=== PATIENT | female | born 1965 | race Caucasian/White ===

== ENCOUNTER 2017-09-26 07:56 | Emergency (ER) | payer OTHER ==
[~2017-09-26] VITALS: Ht 154.9 cm; Wt 105.2 kg
[~2017-09-26 07:56] MED LIST: CYCLOBENZAPRINE10 MG PO; MELOXICAM15 MG PO; SERTRALINE HCL50 MG PO; TRAMADOL HCL50 MG PO
[2017-09-26] MEDS ORDERED: ACETAMINOPHEN325 M1 PO (08:15)
[2017-09-26] MEDS ORDERED: IBUPROFEN400 MG PO (08:16)
[2017-09-26] MEDS ORDERED: ONDANSETRON ODT8 MG PO (08:20)
[2017-09-26] MEDS ORDERED: PROMETHAZINE HC25 M1 PO (11:25)
== END 2017-09-26 12:28 | disposition home or self-care (01) ==
LOC: ED 07:56
DX: K52.9 Noninfective gastroenteritis and colitis, unspecified (principal); F17.200 Nicotine dependence, unspecified, uncomplicated; Z90.49 Acquired absence of other specified parts of digestive tract; Z98.51 Tubal ligation status; Z98.890 Other specified postprocedural states
CPT/HCPCS: 80053; 85025; 96361; 96374; 96375; 96376; 99283; J1200; J2405; J2550; J7030

== ENCOUNTER 2017-11-05 09:13 | Emergency (ER) | payer OTHER ==
[~2017-11-05] VITALS: Ht 154.9 cm; Wt 97.1 kg
[~2017-11-05 09:13] MED LIST changes: +ACETAMINOPHEN325 M1 PO; +IBUPROFEN400 MG PO; +ONDANSETRON ODT8 MG PO; +PROMETHAZINE HC25 M1 PO
[2017-11-05] MEDS ORDERED: NAPROXEN375 MG PO (13:33)
== END 2017-11-05 13:52 | disposition home or self-care (01) ==
LOC: ED 09:13
DX: S86.911A Strain of unspecified muscle(s) and tendon(s) at lower leg level, right leg, initial encounter (principal); F17.200 Nicotine dependence, unspecified, uncomplicated; Z98.51 Tubal ligation status; Z90.49 Acquired absence of other specified parts of digestive tract; W19.XXXA Unspecified fall, initial encounter; Y99.0 Civilian activity done for income or pay
CPT/HCPCS: 73560; 73700; 99283

== ENCOUNTER 2019-07-21 17:30 | Emergency (ER) | payer OTHER ==
[~2019-07-21] VITALS: Ht 154.9 cm; Wt 111.1 kg
[~2019-07-21 17:30] MED LIST changes: +NAPROXEN375 MG PO
[2019-07-22] MEDS ORDERED: CYCLOBENZAPRINE10 MG PO (19:19)
[2019-07-22] MEDS ORDERED: NORCO 5-325 TA1 EACH PO (19:19)
[2019-07-22] MEDS ORDERED: DICLOFENAC SODI75 MG PO (19:19)
== END 2019-07-21 18:42 | disposition home or self-care (01) ==
LOC: ED 17:30
DX: M25.551 Pain in right hip (principal)

== ENCOUNTER 2019-07-22 16:22 | Emergency (ER) | payer OTHER ==
[~2019-07-22] VITALS: Ht 154.9 cm; Wt 111.1 kg
--- OUTSIDE RECORDS SUMMARY | 2019-07-22 16:26 | XMS ---
PreManage Notification: DANNA OLEA Security Epoxy Specialist Events No recent Security Events currently on file CRITERIA MET - [facility] - 2 Visits in 30 Days CARE PROVIDERS Ermias Recio MD Primary Care Current PHONE: Unknown ormiley Case or Net Fisher Current PHONE: Unknown Kurt has no Care Guidelines for this patient. Julissa VISIT COUNT (12 MO.) 2 [facility] TOTAL 2 NOTE: Visits indicate total known visits. ED/UCC VISIT TRACKING (12 MO.) 07/22/2019 16:23 [facility] [place] TYPE: Emergency COMPLAINT: - HIP PAIN 07/21/2019 17:31 [facility] [place] TYPE: Emergency COMPLAINT: - RIGHT HIP PAIN, INJ- MSE TO HOME INPATIENT VISIT TRACKING (12 MO.) No inpatient visits to display in this time frame [email or web address]
[2019-07-22] MEDS ORDERED: NORCO 5-325 TA1 EACH PO (19:19)
[2019-07-22] MEDS ORDERED: CYCLOBENZAPRINE10 MG PO (19:19)
[2019-07-22] MEDS ORDERED: DICLOFENAC SODI75 MG PO (19:19)
== END 2019-07-22 19:32 | disposition home or self-care (01) ==
LOC: ED 16:22
DX: M54.31 Sciatica, right side (principal); F17.200 Nicotine dependence, unspecified, uncomplicated
CPT/HCPCS: 99283; 99406

== ENCOUNTER 2019-09-02 13:22 | Emergency (ER) | payer OTHER ==
[~2019-09-02] VITALS: Ht 154.9 cm; Wt 111.1 kg
--- OUTSIDE RECORDS SUMMARY | ~2019-09-02 | XMS | Clinical Summary ---
Demographics + + + | Address | [address] | | | [place] [address] | + + + | Home Phone | | + + + | Preferred Language | Unknown | + + + | Marital Status | Single | + + + | Congregational Affiliation | Unknown | + + + | Race | Unknown | + + + | Ethnic Group | Unknown | + + + Author + + + | Author | [facility] | | | and [place] | + + + | Organization | [facility] | | | and [place] | + + + | Address | Unknown | + + + | Phone | Unavailable | + + + Support + + +---------+ + | Name | Relationship | Address | Phone | + + +---------+ + | None,None | ECON | Unknown | | + + +---------+ + Care Team Providers + +------+ + | Care Stem Sizer Name | Role | Phone | + +------+ + | No, Physician | PCP | Unavailable | + +------+ + Allergies No Known Allergies Medications + + + +---------+------+------+-------+ | Medication | Sig | Dispensed | Refills | Star | End | Statu | | | | | | t | Date | s | | | | | | Date | | | + + + +---------+------+------+-------+ | naproxen | Take 500 mg by mouth | | 0 | | | Activ | | (NAPROSYN) 500 mg | 2 times daily (with | | | | | e | | tablet | breakfast & | | | | | | | | dinner). | | | | | | + + + +---------+------+------+-------+ | Acetaminophen | Take by mouth as | | 0 | | | Activ | | (TYLENOL PO) | needed. | | | | | e | + + + +---------+------+------+-------+ Active Problems No known active problems Social History + +-------+ +--------+------+ | Tobacco [...] recent travel history available. | + + Last Filed Vital Signs + + + + | Vital Sign | Reading | Time Taken | + + + + | Blood Pressure | 176/88 | 01/29/20181240 PDT | + + + + | Pulse | 84 | 01/29/20181240 PDT | + + + + | Temperature | 37.1 C (98.7 F) | 01/29/20181240 PDT | + + + + | Respiratory Rate | 16 | 01/29/20181240 PDT | + + + + | Oxygen Saturation | 96% | 01/29/20181240 PDT | + + + + | Inhaled Oxygen | - | - | | Concentration | | | + + + + | Weight | 85.1 kg (187 lb 9.8 | 01/29/20181240 PDT | | | oz) | | + + + + | Height | 152.4 cm (5') | 01/29/20181240 PDT | + + + + | Body Mass Index | 36.64 | 01/29/20181240 PDT | + + + + Plan of Treatment + + + + + | Health Maintenance | Due Date | Last Done | Comments | + + + + + | Hepatitis C | 10/02/196 | | | | Screening | 5 | | | + + + + + | Vaccine: | | | | | Dtap/Tdap/Td (1 - | 4 | | | | Tdap) | | | | + + + + + | Vaccine: | | | | | Pneumococcal 19-64 | 4 | | | | (PPSV23 only) Medium | | | | | Risk (1 of 1 - | | | | | PPSV23) | | | | + + + + + | Cervical Cancer | | | | | Screening (Pap) | 5 | | | + + + + + | Breast Cancer | | | | | Screening | 0 | | | + + + + + | Colorectal Cancer | | | | | Screening | 5 | | | | (Colonoscopy) | | | | + + + + + | Vaccine: Zoster (1 | | | | | of 2) | 5 | | | + + + + + | Vaccine: Influenza | | | | | (#1) | 9 | | | + + + + + Results Not on filefrom Last 3 Months Insurance + +--------+ +--------+ +---------+--------+ | Payer | Benefi | Subscriber | Effect | Phone | Address | Type | | | t Plan | ID | black | | | | | | / | | Dates | | | | | | Group | | | | | | + +--------+ +--------+ +---------+--------+ | [employer] | MODA | [id number] | | [phone] | | Medica | | MEDICAID HMO | HEALTH | | 017-Pr | 1 | | id | | | MDCD | | esent | | | | | | HMO [place] | | | | | | + +--------+ +--------+ +---------+--------+ + +--------+ +--------+ + + | Guarantor Name | Accoun | Relation to | Date | Phone | Billing Address | | | t Type | Patient | of | | | | | | | | | | + +--------+ +--------+ + + | Palmira Arias | Person | Self [birth year] | [address] | | | al/Fam | | 1964 | 54 | [place] [address] | | | [place] | | | 0 (Home) | | + +--------+ +--------+ + + | Palmira Arias | 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 For more information, please contact:[facility] [place] [address]"
--- OUTSIDE RECORDS SUMMARY | ~2019-09-02 | XMS | Clinical Summary ---
Demographics + + + | Address | [address] | | | [place] [address] | + + + | Home Phone | | + + + | Preferred Language | Unknown | + + + | Marital Status | Single | + + + | Advent Affiliation | Unknown | + + + | Race | Unknown | + + + | Ethnic Group | Unknown | + + + Author + + + | Author | [facility] | | | and [place] | + + + | Organization | 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 For more information, please contact:[facility] [place] [address]"
[~2019-09-02 13:22] MED LIST changes: +DICLOFENAC SODI75 MG PO; +NORCO 5-325 TA1 EACH PO
--- OUTSIDE RECORDS SUMMARY | 2019-09-02 13:26 | XMS ---
PreManage Notification: DANNA OLEA Security Skin Therapist Events No recent Security Events currently on file CRITERIA MET - [facility] - Has Care Guidelines - PDMP CARE PROVIDERS LOGAN FERGUSON Nurse Practitioner: Family 07/23/2019-Current PHONE: Unknown Ermias Recio MD Primary Care Current PHONE: Unknown casey Case or Instrumentation Designer Current PHONE: Unknown Kurt has no Care Guidelines for this patient. Care History Medical/Surgical 07/23/2019 [facility] - Patient is currently established with [facility]. If patient is seen in the ED during business hours. Please contact CHWs at [facility]. Care Recommendation: This patient has had 5 or more Emergency Department visits in the last 12 months.\T\nbsp; Patient requires education on the scope and purpose of the ED as an acute care provider not a Primary Care Provider and should not be utilized for chronic conditions.\T\nbsp; These are guidelines and the provider should exercise clinical judgment when providing care. E.D. VISIT COUNT (12 MO.) 3 [facility] Patel TOTAL 3 NOTE: Visits indicate total known visits. ED/UCC VISIT TRACKING (12 MO.) 09/02/2019 13:23 [facility] [place] TYPE: Emergency COMPLAINT: - RIB PAIN, INJ 07/22/2019 16:23 [facility] [place] TYPE: Emergency COMPLAINT: - HIP PAIN DIAGNOSES: - Nicotine dependence, unspecified, uncomplicated - Sacrococcygeal disorders, not elsewhere classified - Sciatica, right side 07/21/2019 17:31 [facility] [place] TYPE: Emergency COMPLAINT: - RIGHT HIP PAIN, INJ- MSE TO HOME DIAGNOSES: - Pain in right hip INPATIENT VISIT TRACKING (12 MO.) No inpatient visits to display in this time frame [email or web address]
[2019-09-02] MEDS ORDERED: INDOMETHACIN50 MG PO (15:04)
== END 2019-09-02 15:16 | disposition home or self-care (01) ==
LOC: ED 13:22
DX: R07.89 Other chest pain (principal); F17.200 Nicotine dependence, unspecified, uncomplicated; W18.30XA Fall on same level, unspecified, initial encounter
CPT/HCPCS: 71046; 99283-25

== ENCOUNTER 2019-09-04 06:24 | Emergency (ER) | payer OTHER ==
[~2019-09-04] VITALS: Ht 154.9 cm; Wt 111.1 kg
--- OUTSIDE RECORDS SUMMARY | ~2019-09-04 | XMS | Clinical Summary ---
Demographics + + + | Address | [address] | | | [place] [address] | + + + | Home Phone | | + + + | Preferred Language | Unknown | + + + | Marital Status | Single | + + + | Yazdanism Affiliation | Unknown | + + + | Race | Unknown | + + + | Ethnic Group | Unknown | + + + Author + + + | Author | [facility] | | | and [place] | + + + | Organization | 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 For more information, please contact:[facility] [place] [address]"
--- OUTSIDE RECORDS SUMMARY | ~2019-09-04 | XMS | Clinical Summary ---
Demographics + + + | Address | [address] | | | [place] [address] | + + + | Home Phone | | + + + | Preferred Language | Unknown | + + + | Marital Status | Single | + + + | Voodoo Affiliation | Unknown | + + + | Race | Unknown | + + + | Ethnic Group | Unknown | + + + Author + + + | Author | [facility] | | | and [place] | + + + | Organization | 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 For more information, please contact:[facility] [place] [address]"
[~2019-09-04 06:24] MED LIST changes: +INDOMETHACIN50 MG PO
--- OUTSIDE RECORDS SUMMARY | 2019-09-04 06:28 | XMS ---
PreManage Notification: DANNA OLEA Security Director Funds Development Events No recent Security Events currently on file CRITERIA MET - [facility] - Has Care Guidelines - PDMP - [facility] - 2 Visits in 30 Days CARE PROVIDERS LOGAN FERGUSON Nurse Practitioner: Family 07/23/2019-Current PHONE: Unknown Ermias Recio MD Primary Care Current PHONE: Unknown ormiley Case or Solar Electric/Photovoltaic Installer Current PHONE: Unknown Kurt has no Care Guidelines for this patient. Care History Medical/Surgical 09/03/2019 [facility] Patient\T\nbsp; canceled last appt with PCP re: 3 month f/u. No upcoming appts scheduled. 07/23/[address] [facility] - Patient is currently established with [facility]. If patient is seen in the ED during business hours. Please contact CHWs at [facility]. Care Recommendation: This patient has had 5 [...] providing care. E.D. VISIT COUNT (12 MO.) 4 [facility]. TOTAL 4 NOTE: Visits indicate total known visits. ED/UCC VISIT TRACKING (12 MO.) 09/04/2019 06:25 [facility] [place] TYPE: Emergency COMPLAINT: - RIB PAIN, INJ 09/02/2019 13:[address] [facility] [place]: Emergency COMPLAINT: - RIB PAIN, INJ 07/22/2019 16:[address] [facility] [facility] [place] TYPE: Emergency COMPLAINT: - HIP PAIN DIAGNOSES: - Nicotine dependence, unspecified, uncomplicated - Sacrococcygeal disorders, not elsewhere classified - Sciatica, right side 07/21/2019 17:31 [facility] [place] TYPE: Emergency COMPLAINT: - RIGHT HIP PAIN, INJ- MSE TO HOME DIAGNOSES: - Pain in right hip INPATIENT VISIT TRACKING (12 MO.) No inpatient visits to display in this time frame [id number]
[2019-09-04] MEDS ORDERED: NORCO 5-325 TA1 EACH PO (07:35)
== END 2019-09-04 07:44 | disposition home or self-care (01) ==
LOC: ED 06:24
DX: S20.02XA Contusion of left breast, initial encounter (principal); R07.89 Other chest pain; W19.XXXA Unspecified fall, initial encounter; F17.200 Nicotine dependence, unspecified, uncomplicated; Z79.899 Other long term (current) drug therapy
CPT/HCPCS: 71101; 99284-25

== ENCOUNTER 2020-02-17 14:19 | Emergency (ER) | payer OTHER ==
[~2020-02-17] VITALS: Ht 154.9 cm; Wt 102.1 kg
--- OUTSIDE RECORDS SUMMARY | 2020-02-17 14:22 | XMS ---
PreManage Notification: DANNA OLEA Security Tractor Trailer Mechanic Events No recent Security Events currently on file CRITERIA MET - [facility] - Has Care Guidelines - PDMP CARE PROVIDERS LOGAN FERGUSON Nurse Practitioner: Family 07/23/2019-Current PHONE: [phone] Kurt has no Care Guidelines for this patient. Care History Medical/Surgical 09/03/2019 [facility] Patient\T\nbsp; canceled last appt with PCP re: 3 month f/u. No upcoming appts scheduled. 07/23/2019 [facility] - Patient is currently established with [facility]. If patient is seen in the ED during business hours. Please contact CHWs at [facility]. Care Recommendation: This patient has had [...] providing care. E.D. VISIT COUNT (12 MO.) 5 [facility] TOTAL 5 NOTE: Visits indicate total known visits. ED/UCC VISIT TRACKING (12 MO.) 02/17/2020 14:20 [facility] [place]: Emergency COMPLAINT: - FELL, KNEE PAIN. 09/04/2019 06:25 [facility] [place] TYPE: Emergency COMPLAINT: - RIB PAIN, INJ DIAGNOSES: - Other computer mechanic (current) drug therapy - Unspecified fall, initial encounter - Contusion of left breast, initial encounter - Nicotine dependence, unspecified, uncomplicated - Other chest pain 09/02/2019 13:23 [facility] [place] TYPE: Emergency COMPLAINT: - RIB PAIN, INJ DIAGNOSES: - Pleurodynia - Nicotine dependence, unspecified, uncomplicated - Other chest pain - Fall on same level, unspecified, initial encounter 07/22/2019 16:23 [facility] [place] TYPE: Emergency COMPLAINT: - HIP PAIN DIAGNOSES: - Nicotine dependence, unspecified, uncomplicated - Sacrococcygeal disorders, not elsewhere classified - Sciatica, right side 07/21/2019 17:31 [facility] [place] TYPE: Emergency COMPLAINT: - RIGHT HIP PAIN, INJ- MSE TO HOME DIAGNOSES: - Pain in right hip INPATIENT VISIT TRACKING (12 MO.) No inpatient visits to display in this time frame [email or web address]
[2020-02-17] MEDS ORDERED: TRAMADOL HCL50 MG PO (15:29)
== END 2020-02-17 15:42 | disposition home or self-care (01) ==
LOC: ED 14:19
DX: S89.92XA Unspecified injury of left lower leg, initial encounter (principal); F17.200 Nicotine dependence, unspecified, uncomplicated; W18.30XA Fall on same level, unspecified, initial encounter
CPT/HCPCS: 73560; 90471; 90715; 99283-25

== ENCOUNTER 2020-03-29 11:46 | Emergency (ER) | payer OTHER ==
[~2020-03-29] VITALS: Ht 154.9 cm; Wt 102.1 kg
--- OUTSIDE RECORDS SUMMARY | ~2020-03-29 | XMS | Encounter Summary ---
Demographics + + + | Address | [address] | | | [place] [address] | + + + | Home Phone | | + + + | Preferred Language | Unknown | + + + | Marital Status | Single | + + + | Episcopalian Affiliation | Unknown | + + + | Race | Unknown | + + + | Ethnic Group | Unknown | + + + Author + + + | Author | [facility] | | | and [place] | + + + | Organization | [facility] | | | and [place] | + + + | Address | Unknown | + + + | Phone | Unavailable | + + + Support + + +---------+ + | Name | Relationship | Address | Phone | + + +---------+ + | None None | ECON | Unknown | | + + +---------+ + Care Team Providers + +------+ + | Care Boiler Erector Name | Role | Phone | + +------+ + | No, Physician | PCP | Unavailable | + +------+ + Reason for Visit + + + | Reason | Comments | + + + | Knee Injury | exam 4/ right knee DOI: 11/04/17 swollen/painful knee due to fall | | | while assisting resident | + + + Encounter Details +--------+---------+ + + + | Date | Type | Department | Care Team | Description | +--------+---------+ + + + | 11/09/ | Office | [facility] | William Daniel MD | Contusion of right | | 2018 | Visit | CARE [address] | [address] | knee, initial | | | | [place] | encounter (Primary | | | | [id number] | [id number] | Dx) | | | | [phone] | | | +--------+---------+ + + + Social History + +-------+ +--------+------+ | Tobacco Use | Types | Packs/Day | Years | Date | | | | | Used | | + +-------+ +--------+------+ | Current Every Day | | | | | | Smoker | | | | | + +-------+ +--------+------+ + +---+---+---+ | Smokeless Tobacco: | | | | | Never Used | | | | + +---+---+---+ + + + | Sex Assigned at | Date Recorded | | | | + + + | Not on file | | + + + + + + + | Job Start Date | Occupation | Industry | + + + + | Not on file | Not on file | Not on file | + + + + + + + + | Travel History | Travel Start | Travel End | + + + + + + | No recent travel history available. | + + documented as of this encounter Last Filed Vital Signs + + + + + | Vital Sign | Reading | Time Taken | Comments | + + + + + | Blood Pressure | 141/83 | 11/09/2017 5:46 PM | | | | | PST | | + + + + + | Pulse | 68 | 11/09/2017 5:46 PM | | | | | PST | | + + + + + | Temperature | 37.1 C (98.7 F) | 11/09/2017 5:46 PM | | | | | PST | | + + + + + | Respiratory Rate | 16 | 11/09/2017 5:46 PM | | | | | PST | | + + + + + | Oxygen Saturation | 96% | 11/09/2017 5:46 PM | | | | | PST | | + + + + + | Inhaled Oxygen | - | - | | | Concentration | | | | + + + + + | Weight | 93 kg (205 lb 0.4 | 11/09/2017 5:46 PM | | | | oz) | PST | | + + + + + | Height | 152.4 cm (5') | 11/09/2017 5:46 PM | | | | | PST | | + + + + + | Body Mass Index | 40.04 | 11/09/2017 5:46 PM | | | | | PST | | + + + + + documented in this encounter Patient Instructions Patient Instructions William Daniel MD - 11/09/2017 6:05 PM PST Understanding Bone Bruise (Bone Contusion) A bone bruise is an injury to a bone that is less severe than a bone fracture. Bone bruises are fairly common. They can happen to people of all ages. Any type of bone in your body can be bruised. Other injuries often happen along with a bone bruise, such as damage to nearby ligaments. What happens when a bone is bruised? Bone is made of different kinds of tissue. The periosteum is a thin layer of tissue that co vers most of a bone. Where bones come together, there is usually a layer of cartilage at the edges. The bone here is called subchondral bone. Deep inside the bone is an area called the medulla. It contains the bone marrow and fibrous tissue called trabeculae. With a bone fracture, all of the trabeculae in a region of bone have broken. But with a bon e bruise, an injury only damages some of these trabeculae. An injury might cause blood to bu ild up in the area beneath the periosteum. This causes a subperiosteal hematoma, a type of b one bruise. An injury might also cause bleeding and swelling in the area between your cartil age and the bone beneath it. This causes a subchondral bone bruise. Or bleeding and swelling can occur in the medulla of your bone. This is called an intraosseous bone bruise. What causes a bone bruise? Injury of any kind can cause a bone bruise. Sports injuries, motor vehicle accidents, or fa lls from a height can cause them. Twisting injuries that cause joint sprains can also cause a bone bruise. Health conditions like arthritis may also lead to a bone bruise. This is carisa use arthritis causes bone surfaces to grind against each other. Child abuse is another cause of bone bruises. Symptoms of a bone bruise Symptoms of a bone bruise can include: Pain and soreness in the injured area Swelling in the area and soft tissues around it Change in color of the injured area Swelling or stiffness of an injured joint This pain is often more severe and lasts longer than a soft tissue injury. How severe your symptoms are and how long they last depends on how severe the bone bruise is. Diagnosing a bone bruise Your healthcare provider will ask you about your medical history and symptoms. He or she wi ll ask how you got your injury. Your provider will examine the injured area to check for betty n, bruising, and swelling. After the exam, your health care provider may be able to tell if you have a bone bruise. A bone bruise doesn t show up on an X-ray. But you may be given an X-ray to rule out a demian ne fracture. A fracture may need a different kind of treatment. An MRI can confirm a bone br uise. But your healthcare provider will likely only give you an MRI if your symptoms don t get better. Date Last Reviewed: 02/04/[id number] [employer] [place] [address], [place] [address]. All righ ts reserved. This information is not intended as a substitute for professional medical care. Always follow your healthcare professional's instructions. documented in this encounter Progress Notes William Daniel MD - 11/09/2017 3:45 PM PST Subjective: Patient ID: Palmira Arias is a 52 y.o. female. 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 On 11/04 she was assisting a resident who was slightly combative. The patient laid down on the floor then pulled the caregiver toward her. She tripped, and fell directly with her weight on the anterior right knee. She was seen in [facility] and had x-ray and CT of the knee both of which were negative for fracture. She's been off her feet, still qu ite painful to bear weight and it causes her to limp. She denies a twisting complement to t he injury. HPI Patient's medications, allergies, past medical, surgical, social and family histories were obtained and reviewed as appropriate. Review of Systems she occasionally feels some instability on walking but for the most part is just painful anteriorly. She has a fair-sized ecchymosis there. Objective: BP 141/83 | Pulse 68 | Temp 37.1 C (98.7 F) (Temporal) | Resp 16 | Ht 1.524 m (5') | Wt 93 kg (205 lb 0.4 oz) | SpO2 96% | BMI 40.04 kg/m Physical Exam Constitutional: Normally developed, adequately nourished, and not in acute distress. Does not appear acute ly ill. Musculoskeletal: Legs: No joint effusion. There is some soft tissue swelling. She has bilateral ligamentous laxi ty, but there is no complete tear of the collateral ligaments on either side. And I do not find a positive anterior drawer sign. Assessment: Contusion right knee Plan: Likely she has a bone bruise, which is going to be slow to resolve. She will return to formerly [employer] with modified job description, limiting time on her right lower extremity, recommend sitti ng tasks only. Meloxicam 7.5 mg twice a day for 1 week, then once daily. She can still get some benefit from local ice applications. Tylenol 3 to use only if she is unable to rest. She should be seen in occupational medicine in 10-14 days. This note was dictated using [employer] voice recognition software. Occasional wrong- word or sound-alike substitutions may have occurred due to the inherent limitations of voice recogni tion software. Please read the chart carefully and recognize, using context, where these billy bstitutions have occurred. documented in this enc ounter Plan of Treatment Not on filedocumented as of this encounter Visit Diagnoses + + | Diagnosis | + + | Contusion of right knee, initial encounter - Primary | + + documented in this encounter"
--- OUTSIDE RECORDS SUMMARY | ~2020-03-29 | XMS | Encounter Summary ---
Demographics + + + | Address | [address] | | | [place] [address] | + + + | Home Phone | | + + + | Preferred Language | Unknown | + + + | Marital Status | Single | + + + | Zoroastrianism Affiliation | Unknown | + + + | Race | Unknown | + + + | Ethnic Group | Unknown | + + + Author + + + | Author | [facility] | | | and [place] | + + + | Organization | [facility] | | | and [place] [...] Team Providers + +------+ + | Care Plant Operations Coordinator Name | Role | Phone | + +------+ + | No, Physician | PCP | Unavailable | + +------+ + Reason for Visit + + + | Reason | Comments | + + + | Hip Pain | Proc RM2; pt was prisca x Monday, picked up a box of tomatoes, | | | twisted to put them down, hurt right side hip/lower back; usually | | | naproxen and flexeril take care of bursitis in hip | + + + Encounter Details +--------+---------+ + + + | Date | Type | Department | Care Team | Description | +--------+---------+ + + + | 06/21/ | Office | [facility] | Quique Neff, | Lumbar sprain, | | 2016 | Visit | CARE [address] | [address] | initial encounter | | | | [place] | (Primary Dx) | | | | [address] | [id number] | | | | | [phone] | | | +--------+---------+ + + + [...] + + + | Blood Pressure | 140/88 | 06/21/2017 2:23 PM | | | | | PDT | | + + + + + | Pulse | 97 | 06/21/2017 2:23 PM | | | | | PDT | | + + + + + | Temperature | 37.3 C (99.1 F) | 06/21/2017 2:23 PM | | | | | PDT | | + + + + + | Respiratory Rate | 20 | 06/21/2017 2:23 PM | | | | | PDT | | + + + + + | Oxygen Saturation | 99% | 06/21/2017 2:23 PM | | | | | PDT | | + + + + + | Inhaled Oxygen | - | - | | | Concentration | | | | + + + + + | Weight | 98.9 kg (218 lb) | 06/21/2017 2:23 PM | | | | | PDT | | + + + + + | Height | 152.4 cm (5') | 06/21/2017 2:23 PM | | | | | PDT | | + + + + + | Body Mass Index | 42.58 | 06/21/2017 2:23 PM | | | | | PDT | | + + + + + documented in this encounter Patient Instructions Patient Instructions Quique Neff MD - 06/21/2017 1:30 PM PDTUse heat and light activ ity, with slow stretching and range of motion for your back as needed. Take Naproxyn twice a day and cyclobenzaprine and hydrocodone as directed as needed for pain. Follow up with you r doctor next week, return here sooner as needed. documented in this encounter Progress Notes Quique Neff MD - 06/21/2017 1:30 PM PDTFormatting of this note might be different fr om the original. Subjective: Chief Complaint: Hip Pain (Proc RM2; pt was prisca x Monday, picked up a box of tomatoes, twisted to put them down, hurt right side hip/lower back; usually naproxen and flexeril take care of bursitis in hip) Palmira is a 51 y.o. female who comes in complaining of some right lower back pain for the l ast 3 days that began after she twisted her back while picking up a case of tomatoes. She's been trying to treat it with her usual naproxen and Flexeril without much benefit. She is also tried some intermittent ice without much help. She states the pain is primarily in her right lower back though she also has chronic right lateral hip pain from bursitis that she states is bothering her as well. She denies radiation of pain into the lower extremity and denies any weakness or paresthesias. No other complaints. Patient's medications, allergies, past medical, surgical, social and family histories were reviewed and updated as appropriate. Objective: BP 140/88 | Pulse 97 | Temp 37.3 C (99.1 F) (Temporal) | Resp 20 | Ht 1.524 m (5') | Wt 98.9 kg (218 lb) | SpO2 99% | ? No | BMI 42.58 kg/m General Appearance: Alert, cooperative, no distress, appears stated age Back has moderate tenderness along the right lower lumbar and sacral paraspinal muscles to palpation, nontender elsewhere with no palpable spasm Lower extremities have normal strength and sensation throughout with full range of motion a nd negative straight leg raise bilaterally. Reflexes are 1+ and symmetric to knee jerk and trace and symmetric to ankle jerk. Right lateral hip has some mild tenderness over the grea ter trochanter though is nontender elsewhere. Assessment and Plans: Lumbar sprain. Will treat with heat, gentle range of motion exercises and slow stretching, continue with naproxen and Flexeril as previously prescribed as needed, and Lortab 5/325, # 10, to take as needed. She has an appointment to follow-up with her primary care physician in 5 days. Return here sooner as needed. documented in this e ncounter Plan of Treatment Not on filedocumented as of this encounter Visit Diagnoses + + | Diagnosis | + + | Lumbar sprain, initial encounter - Primary | + + documented in this encounter"
--- OUTSIDE RECORDS SUMMARY | ~2020-03-29 | XMS | Encounter Summary ---
Demographics + + + | Address | [address] | | | [place] [address] | + + + | Home Phone | | + + + | Preferred Language | Unknown | + + + | Marital Status | Single | + + + | Zoroastrianism Affiliation | Unknown | + + + | Race | Unknown | + + + | Ethnic Group | Unknown | + + + Author + + + | Author | [facility] | | | and [place] | + + + | Organization | [facility] | | | and [place] [...] Team Providers + +------+ + | Care Geospatial Technologist Name | Role | Phone | + +------+ + | No, Physician | PCP | Unavailable | + +------+ + Reason for Visit + + + | Reason | Comments | + + + | Foot Pain | Room 3: something in right foot since 09 of May. hurts to walk | | | on. | + + + Encounter Details +--------+---------+ + + + | Date | Type | Department | Care Team | Description | +--------+---------+ + + + | 07/04/ | [facility] | Rylee Carter, | Foreign body in | | 2017 | Visit | CARE [address] | Need updated | right foot, initial | | | | [place] | address | encounter (Primary | | | | [address] | | Dx) | | | | [phone] | | | +--------+---------+ + + + [...] + + + | Blood Pressure | 184/95 | 07/04/2017 11:24 AM | | | | | PDT | | + + + + + | Pulse | 76 | 07/04/2017 11:24 AM | | | | | PDT | | + + + + + | Temperature | 37.4 C (99.4 F) | 07/04/2017 11:24 AM | | | | | PDT | | + + + + + | Respiratory Rate | 16 | 07/04/2017 11:24 AM | | | | | PDT | | + + + + + | Oxygen Saturation | 97% | 07/04/2017 11:24 AM | | | | | PDT | | + + + + + | Inhaled Oxygen | - | - | | | Concentration | | | | + + + + + | Weight | 96.2 kg (212 lb) | 07/04/2017 11:24 AM | | | | | PDT | | + + + + + | Height | 152.4 cm (5') | 07/04/2017 11:24 AM | | | | | PDT | | + + + + + | Body Mass Index | 41.4 | 07/04/2017 11:24 AM | | | | | PDT | | + + + + + documented in this encounter Progress Notes Rylee Carter MD - 07/04/2017 11:00 AM PDTFormatting of this note might be different fro m the original. Subjective: Chief Complaint: Foot Pain (Room 3: something in right foot since 09 of May. hurts to john ward on.) History of Present Illness: Palmira is a 51 y.o. female who comes in complaining of something stuck in the bottom of the right foot for almost a month. She got it May 09. She found a foreign and she thought a p iece of the foreign was in the bottom of the foot and so she just left it hoping they would push itself out. It's been painful all along. It is not draining anything. She hurt her b ack and was seen here and her back feels better but she was walking funny on her foot and th is aggravated it further. She stands at work all the time and so this also makes it worse. She can't miss any work. No other complaints. Patient's medications, allergies, past medical, surgical, social and family histories were reviewed and updated as appropriate. ROS: see HPI Objective: BP (!) 184/95 | Pulse 76 | Temp 37.4 C (99.4 F) (Temporal) | Resp 16 | Ht 1.524 m ( 5') | Wt 96.2 kg (212 lb) | SpO2 97% | BMI 41.40 kg/m General Appearance: Alert, cooperative, no distress, appears stated age She has a callus on the plantar surface of the right foot under the second toe. It's very tender to palpation. There is no erythema or drainage Assessment and Plans: 1. Foreign body in right foot, initial encounter Patient would like me to explore the callus and find the thorn. I shaved off the callus and there was a hard tender object that was very painful for the niecy lee when he tried to remove it. I anesthetized the area with 1 cc of 1% lidocaine plain. I was then able to easily cut out the foreign body. it was shiny and clear consistent with a sliver of glass. Patient felt better after it was removed and I dressed the wound with some antibiotic ointm ent and an eye patch and tape. Wound care instructions given verbally Follow-up as needed. This note was dictated using [employer] voice recognition software. Occasional wrong- word or s ound-alike substitutions may have occurred due to the inherent limitations of voice recognit ion software. Please read the chart carefully and recognize, using context, where these subs titutions have occurred. documented in this en counter Plan of Treatment Not on filedocumented as of this encounter Visit Diagnoses + + | Diagnosis | + + | Foreign body in right foot, initial encounter - Primary | + + documented in this encounter"
--- OUTSIDE RECORDS SUMMARY | ~2020-03-29 | XMS | Encounter Summary ---
Demographics + + + | Address | [address] | | | [place] [address] | + + + | Home Phone | | + + + | Preferred Language | Unknown | + + + | Marital Status | Single | + + + | Oriental Orthodox Affiliation | Unknown | + + + | Race | Unknown | + + + | Ethnic Group | Unknown | + + + Author + + + | Author | [facility] | | | and [place] | + + + | Organization | [facility] | | | and [place] | [...] Team Providers + +------+ + | Care Cardiac Cath Lab Technologist Name | Role | Phone | + +------+ + | No, Physician | PCP | Unavailable | + +------+ + Reason for Visit + + + | Reason | Comments | + + + | Knee Injury | Right knee | + + + Encounter Details +--------+---------+ + + + | Date | Type | Department | Care Team | Description | +--------+---------+ + + + | 11/21/ | Office | [facility] | Keesha, Nkechi | Contusion of right | | 2018 | Visit | [facility] | MD Maria [address] | knee, initial | | | | [place] [address] [place] | encounter (Primary | | | | [address] [place] | [place] [address] | Dx); Place of | | | | [facility] [place] | [phone] | occurrence, | | | | [address] | | industrial places | | | | [phone] | | and premises | +--------+---------+ + + + Social History [...] + + + | Blood Pressure | 156/88 | 11/21/2017 9:48 AM | | | | | PST | | + + + + + | Pulse | 81 | 11/21/2017 9:48 AM | | | | | PST | | + + + + + | Temperature | 37.1 C (98.7 F) | 11/21/2017 9:48 AM | | | | | PST | | + + + + + | Respiratory Rate | - | - | | + + + + + | Oxygen Saturation | - | - | | + + + + + | Inhaled Oxygen | - | - | | | Concentration | | | | + + + + + | Weight | 93 kg (205 lb) | 11/21/2017 9:48 AM | | | | | PST | | + + + + + | Height | 152.4 cm (5') | 11/21/2017 9:48 AM | | | | | PST | | + + + + + | Body Mass Index | 40.04 | 11/21/2017 9:48 AM | | | | | PST | | + + + + + documented in this encounter Progress Notes Nkechi Thao MD - 11/21/2017 10:15 AM PSTEmployer: Taty Krugeror Guarantor: DERRICK Date of injury: 11/04/17 Claim number: Unavailable Chief complaint: Followup right knee injury, closing evaluation Subjective: Injured workers a 52-year-old female who presents today for scheduled follow-up, initial ev aluation by me, for continuation of care for work-related injury. 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 She wa s originally seen and evaluated in the emergency department, had x-rays of the knee as well as a CT scan of the knee which revealed no acute injury. She had a subsequent follow-up in the urgent care, given activity modifications, and referred for continued care. She states since that time she has had resolution of all bruising, no swelling, initially felt a sense of instability but that has since resolved completely. Now only has discomfort with direct pressure over the anterior knee. No locking, popping or sticking. She states initially she had some mild swelling of the knee but that also has completely resolved. She was given a prescription for Tylenol with Codeine and meloxicam. She has ran out of the pain medication s and requests a refill. She does feel that she can be returned to her job of injury at thi s time. She did not injure herself elsewhere with this incident and has no prior history of injury or trauma to the right knee. Past medical history, past surgical history, family history, social history, medications, a llergies reviewed. Review of system: 13 point review of systems reviewed, positive for night sweats, stiffness, muscle pain, sun ght loss and excessive thirst. Otherwise ROS is as per HPI Objective: Vital signs as noted, nursing notes reviewed. Ysoxgrg-ugkh-dbojayzow well-nourished in no apparent distress, pleasant and cooperative. Right knee-normal to inspection. No swelling or effusion. Inferior aspect of the patellae is minimally tender. No palpable abnormalities. Patella is non-ballotable. Full forced f lexion and extension without pain or limitation. No jointline tenderness. No other tender points elicited with palpation. No ligamentous laxity, negative anterior drawer, negative L ockman's. Skin-warm, dry, intact no rashes, erythema, ecchymoses, abrasions, or other lesions are not ed. Imaging/diagnostics: See medical record for reports of previous imaging studies Pending interventions: none Assessment: 1. Right knee contusion Plan: Injured worker has finished with approved medical treatments, returned to regular work resp onsibilities and is doing well. Discussed with injured worker that deeper bruises/bone brui ses require no interventional treatment and will spontaneously recover with the passage of t delonte, however may take several months to completely resolve. She does request a refill of pa in medications, I discussed with her that narcotics are not indicated for this and would not be prescribed. I am providing her with a prescription for meloxicam with instructions for use. After addressing their questions, they are being released from care and will followup on an as-needed basis. She voices understanding and agreement. Injured worker is medically stationary. No further curative medical treatments are indicat ed. No need for work accommodations or vocational services. No permanent impairment as a consequence of this injury. This note was dictated using [employer] voice recognition software. Occasional wrong- word or sound-alike substitutions may have occurred due to the inherent limitations of voice recogni tion software. Please read the chart carefully and recognize, using context, where these billy bstitutions have occurred. documented in th is encounter Plan of Treatment Not on filedocumented as of this encounter Visit Diagnoses + + | Diagnosis | + + | Contusion of right knee, initial encounter - Primary | + + | Place of occurrence, industrial places and premises | + + documented in this encounter"
--- OUTSIDE RECORDS SUMMARY | ~2020-03-29 | XMS | Encounter Summary ---
Demographics + + + | Address | [address] | | | [place] [address] | + + + | Home Phone | | + + + | Preferred Language | Unknown | + + + | Marital Status | Single | + + + | Yazdanism Affiliation | Unknown | + + + | Race | Unknown | + + + | Ethnic Group | Unknown | + + + Author + + + | Author | [facility] | | | and Ariana | + + + | Organization | [facility] | | | and [...] Team Providers + +------+ + | Care Boom Tender Name | Role | Phone | + +------+ + | No, Physician | PCP | Unavailable | + +------+ + Reason for Visit + + + | Reason | Comments | + + + | Hip Pain | RM 6/Slipped on some edwards going up a ramp on 01/27 and has right | | | hip pain radiating up into lower back. OTC meds aren't helping. | + + + Encounter Details +--------+---------+ + + + | Date | Type | Department | Care Team | Description | +--------+---------+ + + + | 01/29/ | Office | [facility] | Killian Booth | Acute right hip pain | | 2017 | Visit | CARE [address] | B, DO [address] | (Primary Dx); Acute | | | | [place] | [address] [place] [address] | midline low back | | | | [phone] | [id number] | pain without | | | | [phone] | | sciatica | +--------+---------+ + + + Social History [...] + | Blood Pressure | 176/88 | 01/29/2018 12:41 PM | | | | | PDT | | + + + + + | Pulse | 84 | 01/29/2018 12:41 PM | | | | | PDT | | + + + + + | Temperature | 37.1 C (98.7 F) | 01/29/2018 12:41 PM | | | | | PDT | | + + + + + | Respiratory Rate | 16 | 01/29/2018 12:41 PM | | | | | PDT | | + + + + + | Oxygen Saturation | 96% | 01/29/2018 12:41 PM | | | | | PDT | | + + + + + | Inhaled Oxygen | - | - | | | Concentration | | | | + + + + + | Weight | 85.1 kg (187 lb 9.8 | 01/29/2018 12:41 PM | | | | oz) | PDT | | + + + + + | Height | 152.4 cm (5') | 01/29/2018 12:41 PM | | | | | PDT | | + + + + + | Body Mass Index | 36.64 | 01/29/2018 12:41 PM | | | | | PDT | | + + + + + documented in this encounter Patient Instructions Patient Instructions Killian Booth, - 01/29/2018 1:11 PM PDT Back Pain (Acute or Chronic) Back pain is one of the most common problems. The good news is that most people feel better in 1 to 2 weeks, and most of the rest in 1 to 2 months. Most people can remain active. People who have paindescribe it differently noteveryone is the same. The pain can be sharp, stabbing, shooting, aching, cramping or burning. Movement, standing, bending, lifting, sitting, or walking may worsen pain. It can be localized to one spot or area, or it can be more generalized. It can spread or radiate upwards, to the front, or go down your arms or legs (sciatica). It can cause muscle spasm. Most of the time, mechanical problems with the musclesor spine cause the pain. Mechanical problemsare usually caused by an injury to the muscles or ligaments. While illness can ca use back pain, it is usually not caused by a serious illness. Mechanical problems include: Physical activity such as sports, exercise, work, or normal activity Overexertion, lifting, pushing, pulling incorrectly or too aggressively Sudden twisting, bending, or stretching from an accident, or accidental movement Poor posture Stretching or moving wrong, without noticing pain at the time Poor coordination, lack of regular exercise (check with your doctor about this) Spinal disc disease or arthritis Stress Pain can also be related to , or illness like appendicitis, bladder or kidney infe ctions, pelvic infections, and many other things. Acute back pain usually gets better in1 to 2 weeks. Back pain related to disk disease, ar thritis in the spinal joints or spinal stenosis (narrowing of the spinal canal) can become c hronic and last for months or years. Unless you had a physical injury (for example, a car accident or fall) X-rays are usually n ot needed for the initial evaluation of back pain. If pain continues and does not respond to medical treatment, X-rays and other tests may be needed. Home care Try these home care recommendations: When in bed, tryto find a position of comfort. A firm mattress is best. Try lying flat on your back with pillows under your knees. You can also try lying on your side with your k nees bent up towards your chest and a pillow between your knees. At first, do not try to stretch out the sore spots. If there is a strain, it is not like the good soreness you get after exercising without an injury. In this case, stretching may make it worse. Don't sit for long periods, as in a long car ride or during othertravel. This puts mor e stress on the lower back than standing or walking. During the first 24 to 72 hours after an acute injury or flare up of chronic back pain, apply an ice pack to the painful area for 20 minutes and then remove it for 20 minutes. Do t his over a period of 60 to 90 minutes or several times a day. This will reduce swelling and pain. Wrap the ice pack in a thin towel or plastic to protect your skin. You can start with ice, then switch to heat. Heat (hot shower, hot bath, or heating pad) reduces pain and works well for muscle spasms. Heat can be applied to the painful area for 20 minutes then remove it for 20 minutes. Do this over a period of 60 to 90 minutes or sever al times a day. Do not sleep on a heating pad. It can lead to skin ballesteros or tissue damage. You can alternate ice and heat therapy. Talk with your doctor aboutthe best treatment for your back pain. Therapeutic massage can help relax the back muscles without stretching them. Be aware of safe lifting methods and do not lift anything without stretching first. Medicines Talk to your doctor before using medicine, especially if you have other medical problems or are taking other medicines. You may use keqy-gcj-vknkcln medicine as directed on the bottle to control pain, unless another pain medicine was prescribed. If you have chronic conditions like diabetes, liver or kidney disease, stomach ulcers, or gastrointestinal bleeding, or are taking blood thinners, talk to your doctor before taking any medicine. Be careful if you are given a prescription medicines, narcotics, or medicine for muscle spasms. They can cause drowsiness, affect your coordination, reflexes, and judgement. Do not drive or operate heavy machinery. Follow-up care Follow up with your healthcare provider, or as advised. A radiologist will review any X-rays that were taken. Your provide will notify you of any n ew findings that may affect your care. Call 911 Call 911 if any of the following occur: Trouble breathing Confusion Very drowsy or trouble awakening Fainting or loss of consciousness Rapid or very slow heart rate Loss of bowel or bladder control When to seek medical advice Call your healthcare provider right away if any of these occur: Pain becomes worse or spreads to your legs Weakness or numbness in one or both legs Numbness in the groin or genital area Date Last Reviewed: 05/06/201619993590-4103 [employer]. [address] [place] [address]. All righ ts reserved. This information is not intended as a substitute for professional medical care. Always follow your healthcare professional's instructions. Hip Strain You have a strain of the muscles around the hip joint. A muscle strain is a stretching or t earing of muscle fibers. This causes pain, especially when you move that muscle. There may a lso be some swelling and bruising. Home care Stay off the injured leg as much as possible until you can walk on it without pain. If y ou have a lot of pain with walking, crutches or a walker may be prescribed. These can be rodo jacob or purchased at many pharmacies and surgical or orthopedic supply stores. Follow your he althcare provider's advice regarding when to begin putting weight on that leg. Apply an ice pack over the injured area for 15 to 20 minutes every 3 to 6 hours. You sumeet uld do this for the first 24 to 48 hours. You can make an ice pack by filling a plastic bag that seals at the top with ice cubes and then wrapping it with a thin towel. Be careful not to injure your skin with the ice treatments. Ice should never be applied directly to skin. C ontinue the use of ice packs for relief of pain and swelling as needed. After 48 hours, appl y heat (warm shower or warm bath) for 15 to 20 minutes several times a day, or alternate ice and heat. You may use gwsu-vwy-ybekyqs pain medicine to control pain, unless another pain medicine was prescribed. If you have chronic liver or kidney disease or ever had a stomach ulcer or GI bleeding, talk with your healthcare provider beforeusing these medicines. If you play sports, you may resume these activities when you are able to hop and run on the injured leg without pain. Follow-up care Follow up with your healthcare provider, or as advised. If your symptoms do not begin to ge t better after a week, more tests may be needed. If X-rays were taken, you will be told of any new findings that may affect your care. When to seek medical advice Call your healthcare provider right away if any of these occur: Increased swelling or bruising Increased pain Losing the ability to put weight on the injured side Date Last Reviewed: 09/24/201519991233-6519 [employer]. [address] [place] [address]. All righ ts reserved. This information is not intended as a substitute for professional medical care. Always follow your healthcare professional's instructions. documented in this encounter Progress Notes Killian Booth DO - 01/29/2018 12:00 PM PDT Subjective: Chief Complaint: Hip Pain (RM 6/Slipped on some edwards going up a ramp on 01/27 and has right hip pain radiating up into lower back. OTC meds aren't helping.) HPI 52-year-old female here with complaints of right hip and lower back pain. States that she was walking up a ramp to her house, given her morning when it was cold out, slipped on the r amp, and feels like she pulled a muscle in her right hip and lower back. She has tried over -the-counter medications with minimal relief. She denies any falls, or head strikes. It wa s truly a mechanical slip. Denies any dizziness, chest pain, or shortness of breath. She h as normal bowel and bladder function. Walked in to the urgent care, carrying her dog withou t any assistance or difficulty. When asked to get on the exam table she was able to without any difficulty. She denies any radicular symptoms going into either leg. States she does not feel like x-rays are necessary took today, due to not actually falling. Would like a pr escription for a muscle relaxer Patient's medications, allergies, past medical, surgical, social and family histories were reviewed and updated as appropriate. Review of Systems Constitutional: Negative for chills and fever. HENT: Negative for sore throat. Respiratory: Negative for cough. Cardiovascular: Negative for chest pain. Gastrointestinal: Negative for nausea and vomiting. Genitourinary: Negative for dysuria. Musculoskeletal: Positive for back pain. Negative for falls. Right hip pain Skin: Negative for rash. Objective: BP 176/88 | Pulse 84 | Temp 37.1 C (98.7 F) (Temporal) | Resp 16 | Ht 1.524 m (5') | Wt 85.1 kg (187 lb 9.8 oz) | SpO2 96% | BMI 36.64 kg/m Physical Exam Constitutional: She appears well-developed. HENT: Right Ear: External ear normal. Left Ear: External ear normal. Mouth/Throat: Oropharynx is clear and moist. Eyes: Pupils are equal, round, and reactive to light. Neck: Neck supple. Cardiovascular: Normal heart sounds. Pulmonary/Chest: Breath sounds normal. Abdominal: Soft. Musculoskeletal: Right hip: She exhibits tenderness. She exhibits no bony tenderness and no swelling. Lumbar back: She exhibits pain and spasm. Neurological: She is alert. Skin: Skin is warm. Assessment and Plans: Right hip and lumbar pain: We will give her a prescription for Flexeril, and [place] for pain at night. She can use eit her heat or ice for pain relief. Continue to use NSAIDs as needed follow-up with the [facility]. documented in this encounter Plan of Treatment Not on filedocumented as of this encounter Visit Diagnoses + + | Diagnosis | + + | Acute right hip pain - Primary Pain in joint, pelvic region and thigh | + + | Acute midline low back pain without sciatica | + + documented in this encounter"
--- OUTSIDE RECORDS SUMMARY | ~2020-03-29 | XMS | Encounter Summary ---
Demographics + + + | Address | [address] | | | [place] [address] | + + + | Home Phone | | + + + | Preferred Language | Unknown | + + + | Marital Status | Single | + + + | Worship Affiliation | Unknown | + + + | Race | Unknown | + + + | Ethnic Group | Unknown | + + + Author + + + | Author | [facility] | | | and Ariana | + + + | Organization | [facility] | | | and [...] Team Providers + +------+ + | Care Aircraft Armorer Name | Role | Phone | + [...] + + | 01/29/ | Office | [facility] | Killian Booth | Acute right hip pain | | 2017 | Visit | CARE [address] | B, DO [address] | (Primary Dx); Acute | | | | [place] [address] | [address] [place] [address] | midline low back | | | | [phone] | [address] | pain without | | | | [phone] | | sciatica | +--------+---------+ + + [...] are taking other medicines. You may use vdja-tmg-jsrcxaq medicine as directed on the bottle to [...] groin or genital area Date Last Reviewed: 05/06/201619997139-8943 [employer] [address] [place] [address]. All righ ts reserved. This information is [...] alternate ice and heat. You may use etwl-hok-kbbsbzx pain medicine to control pain, unless another [...] on the injured side Date Last Reviewed: 09/24/201519995600-3499 [employer] [address] [place] [address]. All righ ts reserved. This information is [...] give her a prescription for Flexeril, and [place] for pain at night. She can use eit her heat or ice for pain relief. Continue to use NSAIDs as needed follow-up with the [facility]. documented in this encounter Plan of Treatment Not on filedocumented as of this encounter Visit Diagnoses + + | Diagnosis | + + | Acute right hip pain - Primary Pain in joint, pelvic region and thigh | + + | Acute midline low back pain without sciatica | + + documented in this encounter"
--- OUTSIDE RECORDS SUMMARY | ~2020-03-29 | XMS | Encounter Summary ---
Demographics + + + | Address | [address] | | | [place] [address] | + + + | Home Phone | | + + + | Preferred Language | Unknown | + + + | Marital Status | Single | + + + | Christianity Affiliation | Unknown | + + + | Race | Unknown | + + + | Ethnic Group | Unknown | + + + Author + + + | Author | [facility] | | | and Ariana | + + + | Organization | [facility] | | | and [place] [...] Team Providers + +------+ + | Care Testing Specialist Name | Role | Phone | + [...] + + | 07/04/ | Office | [facility] | Rylee Carter, | Foreign body in | | 2017 | Visit | CARE [address] | Need updated | right foot, initial | | | | [place] | address | encounter (Primary | | | | [address] | | Dx) | | | | [phone] | | | +--------+---------+ + + + [...] as needed. This note was dictated using eze[employer] voice recognition software. Occasional wrong- word or [...]
--- OUTSIDE RECORDS SUMMARY | ~2020-03-29 | XMS | Clinical Summary ---
Demographics + + + | Address | [address] | | | [place] [address] | + + + | Home Phone | | + + + | Preferred Language | Unknown | + + + | Marital Status | Single | + + + | Latter Day Affiliation | Unknown | + + + | Race | Unknown | + + + | Ethnic Group | Unknown | + + + Author + + + | Author | [facility] | | | and Ariana | + + + | Organization | [facility] | | | and [place] [...] Team Providers + +------+ + | Care Retail Solar Advisor Name | Role | Phone | + [...] | | + + + + + Plan of Treatment + + + + + | Health Maintenance | Due Date | Last Done | Comments | + + + + + | Vaccine: | | | | | Dtap/Tdap/Td (1 - | 6 | | | | Tdap) | | [...] Vaccine: Influenza | | | | | (Season Ended) | 0 | | | + + [...] | [employer] | [employer] | [id number] | | [phone] | | [employer] | | MEDICAID HMO [...] [address] | | | al/Fam | | 1965 | [phone] | [place] [address] | | | alma | | | 0 (Home) | | + +--------+ +--------+ + + | Palmira Arias | Worker | Self | [birth year] | [address] | | | s Comp | | 1965 | [phone] | [place] [address] | | | | | | 0 (Home) | | + +--------+ +--------+ + + Advance Directives + + + + + | Type | Date Recorded | Patient | Explanation | | | | Explosive Ordnance Disposal Manager | | + + + + + | Power of | | | | | Marketing Technologist | | | | + + + + + | Advance | | | | | Directive | | | | + + + + +"
--- OUTSIDE RECORDS SUMMARY | ~2020-03-29 | XMS | Encounter Summary ---
Demographics + + + | Address | [address] | | | [place] [address] | + + + | Home Phone | | + + + | Preferred Language | Unknown | + + + | Marital Status | Single | + + + | Pentecostalism Affiliation | Unknown | + + + | Race | Unknown | + + + | Ethnic Group | Unknown | + + + Author + + + | Author | [facility] | | | and [place] | + + + | Organization | [facility] | | | and [place] [...] Team Providers + +------+ + | Care Renewable Energy Project Manager Name | Role | Phone | + +------+ + | No, Physician | PCP | Unavailable | + +------+ + Reason for Visit + + + | Reason | Comments | + + + | Follow-up | Back painRM 1 | + + + Encounter Details +--------+---------+ + + + | Date | Type | Department | Care Team | Description | +--------+---------+ + + + | 06/23/ | Office | [facility] | Rylee Carter, | Low back strain, | | 2017 | Visit | CARE [address] | Need updated | initial encounter | | | | [place] | address | (Primary Dx) | | | | [address] | | | | | | [phone] | | | +--------+---------+ + + + [...] + + + | Blood Pressure | 170/80 | 06/23/2017 3:23 PM | | | | | PDT | | + + + + + | Pulse | 95 | 06/23/2017 3:23 PM | | | | | PDT | | + + + + + | Temperature | 37.4 C (99.4 F) | 06/23/2017 3:23 PM | | | | | PDT | | + + + + + | Respiratory Rate | 20 | 06/23/2017 3:23 PM | | | | | PDT | | + + + + + | Oxygen Saturation | 98% | 06/23/2017 3:23 PM | | | | | PDT | | + + + + + | Inhaled Oxygen | - | - | | | Concentration | | | | + + + + + | Weight | 97.3 kg (214 lb 9.6 | 06/23/2017 3:23 PM | | | | oz) | PDT | | + + + + + | Height | 152.4 cm (5') | 06/23/2017 3:23 PM | | | | | PDT | | + + + + + | Body Mass Index | 41.91 | 06/23/2017 3:23 PM | | | | | PDT | | + + + + + documented in this encounter Patient Instructions Patient Instructions Rylee Carter MD - 06/23/2017 3:15 PM PDT Back Sprain or Strain Injury to the muscles (strain) or ligaments (sprain) around the spine canbe troubling. In jury may occur after a sudden forceful twisting or bending force such as in a car accident, after a simple awkward movement, or after lifting something heavy with poor body positioning . Inany case, muscle spasm is often present and adds to the pain. Thankfully, most people feel better in 1 to 2 weeks, and most of the rest in 1 to 2 months. Most people can remain active. Unless you had a forceful or traumatic physical injury such asa car accident or fall, X-rays may not be ordered for the first evaluation of a back spr ain or strain. If pain continues and does not respond to medical treatment, your healthcare provider may then order X-rays and other tests. Home care The following guidelines will help you care for your injury at home: When in bed, try to find a comfortable position. A firm mattress is best. Try lying flat on your back with pillows under your knees. You can also try lying on your side with your k nees bent up toward your chest and a pillow between your knees. Don't sit for long periods. Try not to take long car rides or take other trips that have you sitting for a long time. This puts more stress on the lower back than standing or walki ng. During the first 24 to 72 hours after an injury or flare-up, apply an ice pack to the pa inful area for 20 minutes. Then remove it for 20 minutes. Do this for60 to 90 minutes, or several times a day. This will reduce swelling and pain. Be sure to wrap the ice pack in a t hin towel or plastic to protect your skin. You can start with ice, then switch toheat. Heat from a hot shower, hot bath, or heati ng pad reduces pain and works well for muscle spasms. Put heat on the painful area for 20 mi nutes, then remove for 20 minutes.Do this for 60to 90 minutes, or several times a day. D o not use a heating pad while sleeping. It can burn the skin. You can alternate theice and heat. Talk with your healthcare provider to find out the best treatment or therapy for your back pain. Therapeutic massage will help relax the back muscles without stretching them. Be aware of safe lifting methods. Do not lift anything over 15 pounds until all of the p ain is gone. Medicines Talk to your healthcare provider before using medicines, especially if you have other healt h problems or are taking other medicines. You may use acetaminophen or ibuprofen to control pain, unless another pain medicine was prescribed. If you have chronic conditions like diabetes, liver or kidney disease, stomach ulcers, or gastrointestinal bleeding, or are taking blood-thinner medicines, talk with your doctor before taking any medicines. Be careful if you are given prescription medicines, narcotics, or medicine for muscle sp asm. They can cause drowsiness, and affect your coordination, reflexes, and judgment. Do not drive or operate heavy machinery when taking these types of medicines. Only take pain medic ine as prescribed by your healthcare provider. Follow-up care Follow up with your healthcare provider, or as advised. You may need physical therapy or mo re testsif your symptoms get worse. If you had X-rays your healthcare provider may be checking for any broken bones, breaks, or fractures. Bruises and sprains can sometimes hurt as much as a fracture. These injuries can take time to heal completely. If your symptoms don t improve or they get worse, talk with your healthcare provider. You may need a repeat X-ray or other tests. Call 911 Call for emergency care if any of the following occur: Trouble breathing Confused Very drowsy or trouble awakening Fainting or loss of consciousness Rapid or very slow heart rate Loss of bowel or bladder control When to seek medical advice Call your healthcare provider right away if any of the following occur: Pain gets worse or spreads to your arms or legs Weakness or numbness in one or both arms or legs Numbness in the groin or genital area Date Last Reviewed: 04/06/201619996331-9589 [employer]. [address] [place] [id number]. All righ ts reserved. This information is not intended as a substitute for professional medical care. Always follow your healthcare professional's instructions. documented in this encounter Progress Notes Rylee Carter MD - 06/23/2017 3:15 PM PDTFormatting of this note might be different fro m the original. Subjective: Chief Complaint: Follow-up (Back painRM 1 ) Palmira is a 51 y.o. female who comes in complaining of ongoing LBP. She picked up the case of tomatoes while she was prisca on Monday. She came in Monday to see Dr Neff. 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 She is concerned because she is post at work [email or web address] and she is having a lot of pain in her low back. Dr Nestor brice gave her 10 hydrocodone and she didn't think she would really need them but she's gone through them. She has 2 left and she has to work all weekend. Her next day off is Monday . Pain is primarily low back, with no radiation to buttocks or legs. Has no weakness and n o paresthesias radiating to legs. Palmira has had back and hip pain/hip bursitis in the past and the Naprosyn and cyclobenzaprine typically takes care of it. It is not really working this time. No other complaints. Patient's medications, allergies, past medical, surgical, social and family histories were reviewed and updated as appropriate. ROS: see HPI denies numbness of the genitals, loss of bowel or bladder control or leg wea kness Objective: BP 170/80 | Pulse 95 | Temp 37.4 C (99.4 F) (Temporal) | Resp 20 | Ht 1.524 m (5') | Wt 97.3 kg (214 lb 9.6 oz) | SpO2 98% | BMI 41.91 kg/m General Appearance: Alert, cooperative, no distress, appears stated age, looks uncomfortab le Head: Normocephalic, without obvious abnormality, atraumatic Back: Spine nontender, positive tender in the right lumbar paraspinous muscles positive sp asm Range of motion low back 90 flexion, 15 extension Lower extremities with grossly normal strength and sensation throughout, with reflexes norm al to knee jerk and ankle jerk bilaterally, with negative straight leg raise bilaterally Skin: Normal without rash or eccymosis. I reviewed Dr. Neff's note from 06/21/17 Assessment and Plans: Assessment: Low back strain Plan: Alternate ice and heat application to the low back Stop the Naprosyn and try a Medrol Dosepak. She can restart the Naprosyn after she finishe s the Dosepak. Take the prednisone pills. Taking before she goes to work because it can ca use difficulty sleeping if she takes it right before she goes to bed. Stop the Medrol if she gets stomach pain with taking it. I refilled her hydrocodone for #20 Continue the muscle relaxer Follow-up on Monday if she still having significant pain Follow up immediately if loss or bowel or bladder control, saddle anesthesia or leg weaknes s. This note was dictated using [employer] voice recognition software. Occasional wrong- word or s ound-alike substitutions may have occurred due to the inherent limitations of voice recognit ion software. Please read the chart carefully and recognize, using context, where these subs titutions have occurred. documented in this en counter Plan of Treatment Not on filedocumented as of this encounter Visit Diagnoses + + | Diagnosis | + + | Low back strain, initial encounter - Primary | + + documented in this encounter"
--- OUTSIDE RECORDS SUMMARY | ~2020-03-29 | XMS | Encounter Summary ---
Demographics + + + | Address | [address] | | | [place] [address] | + + + | Home Phone | | + + + | Preferred Language | Unknown | + + + | Marital Status | Single | + + + | Adventism Affiliation | Unknown | + + + | Race | Unknown | + + + | Ethnic Group | Unknown | + + + Author + + + | Author | [facility] | | | and [place] | + + + | Organization | [facility] | | | and [...] Team Providers + +------+ + | Care As400 Developer Name | Role | Phone | + [...] | [address] | [place] [address] | Dx); Place of | | | | [facility] [place] | [phone] | occurrence, | | | | [address] | | industrial places | | | | [phone] | | and premises | +--------+---------+ + [...] Vital signs as noted, nursing notes reviewed. Vznybyu-lmxo-aiuxtiuwn well-nourished in no apparent distress, pleasant and [...] this injury. This note was dictated using [employer] voice recognition software. Occasional wrong- word or [...]
--- OUTSIDE RECORDS SUMMARY | ~2020-03-29 | XMS | Clinical Summary ---
Demographics + + + | Address | [address] | | | [place] [address] | + + + | Home Phone | | + + + | Preferred Language | Unknown | + + + | Marital Status | Single | + + + | Sikhism Affiliation | Unknown | + + + | Race | Unknown | + + + | Ethnic Group | Unknown | + + + Author + + + | Author | [facility] | | | and [place] | + + + | Organization | [facility] | | | and [place] | [...] Team Providers + +------+ + | Care Head Paper Tester Name | Role | Phone | + [...] | [employer] | [facility] | [id number] | | [phone] | | [employer] | [...] | 1965 | [phone] | [place] [address] | | | [place] | | | 0 (Home) | | + +--------+ +--------+ + + | Palmira Arias | Worker | Self | [birth year] | [address] | | | s Comp | | 1965 | [phone] | [place] [address] | | | | | | 0 (Home) | | + +--------+ +--------+ + + Advance Directives + + + + + | Type | Date Recorded | Patient | Explanation | | | | Hematology Nurse Educator | | + + + + + | Power of | | | | | Perl Software Engineer | | | | + + + + + | Advance | | | | | Directive | | | | + + + + +"
--- OUTSIDE RECORDS SUMMARY | ~2020-03-29 | XMS | Encounter Summary ---
Demographics + + + | Address | [address] | | | [place] [address] | + + + | Home Phone [...] Author + + + | Author | [facility] | | | and [place] | + + + | Organization | [facility] | | | and [...] Team Providers + +------+ + | Care Group Work Program Aide Name | Role | Phone | + [...] initial encounter | | | | [place] | address | (Primary Dx) | | | | [address] | | | | | | [phone] | | | +--------+---------+ + + + [...] groin or genital area Date Last Reviewed: 04/06/201619993254-8430 [employer]. [address] [place] [address]. All righ ts reserved. 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 She is concerned because she is post at work [employer] and she is having a lot of [...] weaknes s. This note was dictated using [email or web address] voice recognition software. Occasional wrong- word or [...]
--- OUTSIDE RECORDS SUMMARY | ~2020-03-29 | XMS | Encounter Summary ---
Demographics + + + | Address | [address] | | | [place] [address] | + + + | Home Phone | | + + + | Preferred Language | Unknown | + + + | Marital Status | Single | + + + | Worship Affiliation | Unknown | + + + | Race | Unknown | + + + | Ethnic Group | Unknown | + + + Author + + + | Author | [facility] | | | and [place] | + + + | Organization | [facility] | | | and [place] [...] Team Providers + +------+ + | Care Poultry Scientist Name | Role | Phone | + [...] + + | 06/21/ | [facility] | [facility] | Quique Neff, | Lumbar sprain, | | 2016 | Visit | CARE [address] | [address] | initial encounter | | | | [place] | [place] | (Primary Dx) | | | | [address] | [address] | | | | | [phone] | | | +--------+---------+ + + + [...]
--- OUTSIDE RECORDS SUMMARY | ~2020-03-29 | XMS | Encounter Summary ---
Demographics + + + | Address | [address] | | | [place] [address] | + + + | Home Phone | | + + + | Preferred Language | Unknown | + + + | Marital Status | Single | + + + | Yazidism Affiliation | Unknown | + + + | Race | Unknown | + + + | Ethnic Group | Unknown | + + + Author + + + | Author | [facility] | | | and [place] | + + + | Organization | [facility] | | | and [...] Team Providers + +------+ + | Care Patient Relations Coordinator Name | Role | Phone | [...] + | 11/09/ | Office | [facility] | William Daniel MD | Contusion of right | | 2018 | Visit | CARE [address] | [address] | knee, initial | | | | [place] | [place] | encounter (Primary | | | | [address] | [address] | Dx) | | | | [phone] | | | +--------+---------+ + + + [...] don t get better. Date Last Reviewed: 02/04/201719996565-6465 [employer]. [address] [place] [address], [place] [address]. All righ ts reserved. This information is not intended as a substitute for professional medical care. Always follow your healthcare professional's instructions. documented in this encounter Progress Notes William Daniel MD - 11/09/2017 3:45 PM PST Subjective: Patient ID: Palmira Arias is a 52 y.o. female. 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 On 11/04 she was assisting a resident who was slightly combative. The patient laid down on the floor then pulled the caregiver toward her. She tripped, and fell directly with her weight on the anterior right knee. She was seen in [facility] and had x-ray and CT of [...] slow to resolve. She will return to [employer] with modified job description, limiting time [...] 10-14 days. This note was dictated using [employer] voice recognition software. Occasional wrong- word or [...]
--- OUTSIDE RECORDS SUMMARY | 2020-03-29 11:48 | XMS ---
PreManage Notification: DANNA OLEA Security Accessioner Events No recent Security Events currently on file CRITERIA MET - [facility] - Has Care Guidelines - PDMP CARE PROVIDERS NORMAN FERGUSON Nurse Practitioner: Family 07/23/2019-Current PHONE: [phone] Kurt has no Care Guidelines for this patient. Care History Medical/Surgical 02/18/2020 [facility] Spoke to patient re: use of walk in for non-life/limb emergencies.\T\nbsp; Patient stated she went to walk in first and they sent her to ED due to the need for xrays.\T\nbsp; Transferred patient to [facility]T\#39[facility] to make follow up appt. and get referral for orthopedist per patient request. 09/03/2019 [facility] Patient\T\nbsp; canceled last appt with PCP re: 3 month f/u. No upcoming appts scheduled. 07/23/2019 [facility] - Patient is currently established with [facility]. If patient is seen in the ED during business hours. Please contact CHWs at [facility]. Care Recommendation: This patient has had 5 or more Emergency Department visits in the last 12 months.\T\nbsp; Patient requires education on the scope and purpose of the ED as an acute care provider not a Primary Care Provider and should not be utilized for chronic conditions.\T\nbsp; These are guidelines and the provider should exercise clinical judgment when providing care. Julissa VISIT COUNT (12 MO.) 6 M[facility]ENITA Patel TOTAL 6 NOTE: Visits indicate total known visits. ED/UCC VISIT TRACKING (12 MO.) 03/29/2020 11:47 [facility] [place] TYPE: Emergency COMPLAINT: - KNEE PAIN, INJ 02/17/2020 14:20 [facility] [place] TYPE: Emergency COMPLAINT: - FELL, KNEE PAIN. DIAGNOSES: - Unspecified injury of left lower leg, initial encounter - Nicotine dependence, unspecified, uncomplicated - Fall on same level, unspecified, initial encounter - Pain in left knee 09/04/2019 06:25 [facility] [place] TYPE: Emergency COMPLAINT: - RIB PAIN, INJ DIAGNOSES: - Other termite treater helper (current) drug therapy - Unspecified fall, initial [...] visits to display in this time frame [id number]
[2020-03-29] MEDS ORDERED: FLUOXETINE HCL40 MG PO (11:56)
[2020-03-29] MEDS ORDERED: NORCO 5-325 TA1 EACH PO (12:37)
== END 2020-03-29 12:53 | disposition home or self-care (01) ==
LOC: ED 11:46
DX: M25.562 Pain in left knee (principal); F32.9 Major depressive disorder, single episode, unspecified; F17.200 Nicotine dependence, unspecified, uncomplicated; Z79.899 Other long term (current) drug therapy; W01.0XXA Fall on same level from slipping, tripping and stumbling without subsequent striking against object, initial encounter
CPT/HCPCS: 73560; 99283-25